=== PATIENT | male | born 1980 | race Caucasian/White ===

== ENCOUNTER 2018-09-22 12:00 | Outpatient (CLI) | payer MEDICAID, SELFPAY ==
[2018-09-22 13:09] LABS: Abs Immature Grans 0.02 k/cumm (0.0-0.09); Absolute Basophil Count 0.02 k/cumm (0.0-0.2); Absolute Eosinophil Count 0.23 k/cumm (0.0-0.7); Absolute Lymphocyte Count 3.48 k/cumm (1.2-3.4); Basophils % 0.2; HCT 41.8 % (40.0-50.0); HGB 14.8 g/dL (13.5-17.5); Immature Grans % 0.2; Lymphocytes % 29.9; Mean Corp. HGB Concentration 35.4 g/dL (32.0-36.0); Mean Corpuscular Volume 93.3 fL (80-95); Mean Platelet Volume 9.6 fL (8.0-11.0); Monocytes % 8.8; Neutrophils % 58.9; Platelet Count 269 x1000/uL (130-400); RBC 4.48 m/cumm (4.50-6.00); RBC Distribution Width 13.3 % (11.8-14.1); White Blood Cell Count 11.65 k/cumm (4.4-10.8)
[2018-09-22 13:12] LABS: Absolute Monocyte Count 1.03 k/cumm (0.11-0.7); Absolute Neutrophil Count 6.86 k/cumm (1.2-6.7)
[2018-09-22 14:07] LABS: ALT 151 U/L (12-78); AST 142 U/L (15-37); Alkaline Phosphatase 79 U/L (46-116); Anion Gap 9.2 mmol/L (3-11); BUN 17 mg/dL (7-18); Bilirubin, Total 0.4 mg/dL (0.2-1.0); CO2 26.8 mmol/L (21.0-32.0); Calcium 9.3 mg/dL (8.5-10.1); Chloride 102 mmol/L (98-107); Glucose 143 mg/dL (70-100); Potassium 4.5 mmol/L (3.5-5.1); Sodium 138 mmol/L (136-145); Total Protein 7.4 g/dL (6.4-8.2)
[2018-09-25 10:56] LABS: Hepatitis C Ab w Rflx HCV PCR Reactive (NEGAT)
[2018-09-25 12:10] LABS: Lyme Ab w Rflx to Lyme Confirm Negative
[2018-09-25 12:35] LABS: Syphilis Serology (RPR) Negative (Negative)
[2018-09-25 22:42] LABS: HCV Genotype 2 (Undetected)
== END 2018-09-22 12:20 ==
PROVIDERS: PCP Nurse Practitioner Family; Visit Provider Nurse Practitioner Family
DX: B18.2 Chronic viral hepatitis C (principal); F11.20 Opioid dependence, uncomplicated; Z79.899 Other long term (current) drug therapy; R53.83 Other fatigue
CPT/HCPCS: 36415; 80053; 86803; 83655; 85025; 86592; 86618; 87521; 87522

== ENCOUNTER 2018-09-22 15:35 | Outpatient (CLI) | payer MEDICAID, SELFPAY ==
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
== END 2018-09-22 15:55 ==
PROVIDERS: PCP Nurse Practitioner Family; Visit Provider Nurse Practitioner Family
DX: B18.2 Chronic viral hepatitis C (principal); F11.20 Opioid dependence, uncomplicated; Z79.899 Other long term (current) drug therapy
CPT/HCPCS: 99205

== ENCOUNTER 2018-11-17 15:09 | Outpatient (CLI) | payer MEDICAID, SELFPAY ==
--- NOTE | 2018-11-20 15:16 | CCCE_ITS ---
Date of service: 11/17/18 Time of Service: 15:15 Comprehensive Care Clinic Note Note: [facility] Acute Visit Name: Martínez Moy : 1980 Date: 11/17/2018 Subjective CC: ?I have the weird rash. I?m afraid it?s coming from my liver.? HPI: Martínez has had a rash for a little over a week and is afraid it is a manifestation of his chronic liver disease. He had a Vibration Controlled Transient Electography (Fibroscan) done on 11/02/2018 at [facility] which showed Cirrhosis (F4). The rash is slightly pruritic and not painful. He and his girlfriend thought it was ring worm but he says that an eruption came up on his back, then this arms. It gets red when he takes a shower but otherwise is just a light pink color and slightly raised. He feels well and has not had any hepatotoxic substances since taking with me last week about the results of the Fibroscan. He was asked to contemplate if he would rather go to a liver specialist for an evaluation and advice on treatment. His genotype is 2 A. ROS: he says he feels well and has not had fevers, chills, night sweats, N/V/D and his urine is not dark. He has a dog that was treated this past summer for a fungal infection but he had no rash at the time. His sig other has no rashes. He says he had a cold recently but that is mostly resolved. Past Medical Hx: Chronic Active HCV now with a Dx of Cirrhosis, OUD/IVDU in the past now stable in treatment w Suboxone 20 mg a day. He has not restarted an ADHD medication as of yet. Social Hx: Lives with his Significant other in an apartment in [place], [place] Objective: VS: 72, 16, 128/74. Non icteric, AINAD, looking well. Skin with slightly raised striated patches, the one on his back about the size of a quarter and the herald patch, the one visible on his arm is the size of a dime. Non vascular/does not lorna, no scale or central clearing. Assessment/Plan Pitaryasis Rosea ? No treatment. Reassured him this is not liver disease connected. Take cooler showers and do not get over heated. Chronic Active Hepatitis C ? he would like to remain in this clinic and after consulting with Dr. Ashok Morrison who consulted with a Heater Engineer Helper at [facility]. It is felt that Mevyret 100/40mg 3 tabs a day for 12 weeks would be the appropriate medication for Martínez as he is treatment na?ve. Will fax a PA to his insurance with this information for approval. Flory Muhammad NP
== END 2018-11-17 15:29 ==
PROVIDERS: PCP Nurse Practitioner Family; Visit Provider Nurse Practitioner Family
DX: L42 Pityriasis rosea (principal); B18.2 Chronic viral hepatitis C
CPT/HCPCS: 99213

== ENCOUNTER 2018-12-08 12:50 | Outpatient (CLI) | payer MEDICAID, SELFPAY ==
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
== END 2018-12-08 13:10 ==
PROVIDERS: PCP Nurse Practitioner Family; Visit Provider Nurse Practitioner Family
DX: B18.2 Chronic viral hepatitis C (principal); F11.20 Opioid dependence, uncomplicated; Z79.899 Other long term (current) drug therapy
CPT/HCPCS: 99213